=== PATIENT | female | born 1930 | race Caucasian/White ===

== ENCOUNTER 2017-05-30 08:05 | Day surgery (SDC) | payer MEDICARE, OTHER ==
[~2017-05-30 08:05] MED LIST: Cefuroxime 10 MG/ML SYRINGE EYELF SCH; Lidocaine 1% PF 2 ML SDV INJECT SCH; Pilocarpine 4% Ophth Soln 15 ML Bot EYELF SCH
[2017-05-30] MEDS: Ofloxacin 0.3% Ophth Soln 5 ML Bottle EYELF SCH ×3 (09:16→10:50)
[2017-05-30] MEDS: Brimonidine 0.2% Ophth Soln 5 ML Bottle EYELF SCH ×3 (09:22→10:50)
[2017-05-30] MEDS: Phenylephrine 2.5% Ophth Soln 2 ML Bot EYELF SCH ×5 (09:28→10:26)
--- NOTE | 2017-05-30 09:35 | PCM.PREANE ---
Preanesthetic Assessment - Anesthesia/Transfusion/Family Hx Anesthesia History: Prior Anesthesia Without Reaction Family History of Anesthesia Reaction: No Transfusion History: No Prior Transfusion(s) Intubation History: Unknown - Review of Systems General: No Symptoms Pulmonary: No Symptoms Cardiovascular: No Symptoms (HTN) Gastrointestinal: No Symptoms Neurological: No Symptoms Other: Reports: None, Easy Bruising - Physical Assessment NPO Status Date: 05/29/17 NPO Status Time: 18:00 Pulse: 56 O2 Sat by Pulse Oximetry: 97 Respiratory Rate: 16 Blood Pressure: 142/68 Temperature: 36.3 C Vital Signs: Last Vital Signs Temp 36.3 C 05/30/17 09:10 Pulse 56 L 05/30/17 09:10 Resp 16 05/30/17 09:10 BP 142/68 H 05/30/17 09:10 Pulse Ox 97 05/30/17 09:10 Height: 1.63 m Weight: 65.771 kg ASA Class: 2 Mental Status: Alert & Oriented x3 Airway Class: Mallampati = 2 Dentition: Reports: Dentures (upper and lower) Thyro-Mental Finger Breadths: 3 Mouth Opening Finger Breadths: 3 ROM/Head Extension: Full Lungs: Clear to Auscultation, Normal Respiratory Effort Cardiovascular: Regular Rate, Regular Rhythm, No Murmurs - Allergies Allergies/Adverse Reactions: Allergies Allergy/AdvReac Type Severity Reaction Status Date / Time Sulfa (Sulfonamide Allergy Rash Verified 05/29/17 14:36 Antibiotics) tramadol Allergy Itching Verified 05/29/17 14:36 hydrocodone AdvReac Vomiting Verified 05/29/17 14:36 morphine AdvReac Vomiting Verified 05/29/17 14:36 - Anesthesia Plan Pre-Op Medication Ordered: Beta Simran Beta Simran: Metoprolol Med Last Dose Date: 05/29/17 Med Last Dose Time: 18:00 - Acknowledgements Anesthesia Type Planned: MAC Pt an Appropriate Candidate for the Planned Anesthesia: Yes Alternatives and Risks of Anesthesia Discussed w Pt/Guardian: Yes Pt/Guardian Understands and Agrees with Anesthesia Plan: Yes PreAnesthesia Questionnaire Cardiovascular History: Reports: Hypertension Other OB/BYN History: x4 Musculoskeletal History: Reports: Osteoporosis, Other (See Below) Other Musculoskeletal History: bulging disc Oncologic (Cancer) History: Reports: None - Past Surgical History Musculoskeletal Surgical History: Reports: Hip Replacement - SUBSTANCE USE Smoking Status *Q: Never Smoker Days Per Week of Alcohol Use: 0 Recreational Drug Use History: No - HOME MEDS Home Medications: Home Meds Metoprolol Tartrate 50 mg PO BID 11/27/14 [History] Gabapentin [Neurontin] 100 mg PO DAILY 05/29/17 [History] - CURRENT (IN HOUSE) MEDS Current Meds: Current Medications Brimonidine Tartrate (Alphagan 0.2% Ophth Soln) 0 ml EYELF ASDIRECTED SYD Stop: 05/30/17 18:00 Last Admin: 05/30/17 09:22 Dose: 1 drop Cefuroxime Sodium (Zinacef) 0 mg EYELF ASDIRECTED SYD Stop: 05/30/17 18:00 Lidocaine HCl (Xylocaine-Mpf 1%) 10 ml INJECT ASDIRECTED SYD Stop: 05/30/17 18:00 Ofloxacin (Ocuflox 0.3% Ophth Soln) 0 ml EYELF ASDIRECTED SYD Stop: 05/30/17 18:00 Last Admin: 05/30/17 09:16 Dose: 1 drop Phenylephrine HCl (You-Synephrine 2.5% Ophth Soln) 0 ml EYELF ASDIRECTED SYD Stop: 05/30/17 18:00 Pilocarpine HCl (Pilocar 4% Ophth Soln) 0 ml EYELF ASDIRECTED SYD Stop: 05/30/17 18:00 Tetracaine HCl (Tetracaine 0.5% Steri-Unit Zoya) 0 ml EYELF ASDIRECTED SYD Stop: 05/30/17 18:00 Tropicamide (Mydriacyl 1% Ophth Soln) 0 ml EYELF ASDIRECTED SYD Stop: 05/30/17 18:00
[2017-05-30] MEDS: Tetracaine HCl/PF 0.5% 4 ML Bottle EYELF SCH ×2 (10:18→10:42)
--- NOTE | 2017-05-30 10:50 | PCM48HPAN ---
Post Anesthesia Note - EVALUATION WITHIN 48HRS OF ANESTHETIC Vital Signs in Normal Range: Yes Patient Participated in Evaluation: Yes Respiratory Function Stable: Yes Airway Patent: Yes Cardiovascular Function Stable: Yes Hydration Status Stable: Yes Pain Control Satisfactory: Yes Nausea and Vomiting Control Satisfactory: Yes Mental Status Recovered: Yes
[2017-05-30 11:03] VITALS: BP 150/73
== END 2017-05-30 11:04 | disposition home or self-care (01) ==
LOC: JD.SDS 08:05
PROVIDERS: ATTEND Ophthalmology
DX: H25.042 Posterior subcapsular polar age-related cataract, left eye (principal); H02.836 Dermatochalasis of left eye, unspecified eyelid; H02.833 Dermatochalasis of right eye, unspecified eyelid; H11.153 Pinguecula, bilateral; E78.00 Pure hypercholesterolemia, unspecified; M81.0 Age-related osteoporosis without current pathological fracture; I10 Essential (primary) hypertension; Z96.1 Presence of intraocular lens; Z79.899 Other long term (current) drug therapy; Z88.5 Allergy status to narcotic agent; Z88.2 Allergy status to sulfonamides; Z98.890 Other specified postprocedural states; Z98.41 Cataract extraction status, right eye
CPT/HCPCS: 66984; J0697; A9270-GY; C1780